=== PATIENT | female | born 1980 | race African-American/Black ===

== ENCOUNTER 2019-12-24 00:25 | Emergency (ER) | payer MEDICAID ==
[~2019-12-24] VITALS: Ht 170.2 cm; Wt 75.0 kg
[2019-12-24] MEDS ORDERED: SODIUM CHLORIDE 0.9% 1,000 ML IV ONE (00:57)
[2019-12-24] MEDS ORDERED: LORAZEPAM 2MG/ML CPJ IV ONE (01:00)
[2019-12-24] MEDS ORDERED: ONDANSETRON HCL 4MG/2ML INJ IV ONE (01:00)
[2019-12-24 01:12] LABS: EOSINOPHILS % 0.5 % (0.0-5.0); HEMATOCRIT. 36.5 % (36.0-48.0); HEMOGLOBIN. 12.3 g/dL (12.0-16.0); LYMPHOCYTES % 19.7 % (20.0-50.0); MEAN CORPUSCULAR HEMOGLOBIN 30.8 pg (28.0-32.0); MEAN PLATELET VOLUME 8.8 fl (7.4-10.4); MONOCYTES % 7.2 % (2.0-8.0); NEUTROPHILS % 71.6 % (40.0-76.0); PLATELET 382 x1000/uL (130-400); RED BLOOD CELL COUNT 4.01 mill/uL (4.2-5.4); RED CELL DISTRIBUTION WIDTH 16.1 % (11.6-14.6)
[2019-12-24 01:19] LABS: CHLORIDE 108 mEq/L (98-107)
[2019-12-24 01:24] LABS: ETHANOL BLOOD < 10 mg/dL
[2019-12-24 02:11] LABS: CLARITY URINE CLOUDY (CLEAR); COLOR URINE DARK YELLOW (YELLOW); KETONES URINE 1+ (NEGATIVE); LEUKOCYTE ESTERASE URINE 1+ (NEGATIVE); NITRITE URINE NEGATIVE (NEGATIVE); OCCULT BLOOD URINE NEGATIVE (NEGATIVE); PROTEIN URINE 1+ (NEGATIVE); SPECIFIC GRAVITY URINE 1.031 (1.005-1.030)
[2019-12-24 02:22] LABS: *BARBITURATES SCREEN URINE NEGATIVE (NEGATIVE); *BENZODIAZEPINES SCREEN URINE NEGATIVE (NEGATIVE); CANNABINOID URINE SCREEN NEGATIVE (NEGATIVE); METHADONE URINE SCREEN NEGATIVE (NEGATIVE); OPIATES URINE SCREEN NEGATIVE (NEGATIVE)
[2019-12-24 02:32] LABS: *AMPHETAMINES SCREEN URINE PRESUMTIVE POSITIVE (NEGATIVE); *COCAINE SCREEN URINE PRESUMTIVE POSITIVE (NEGATIVE); PHENCYCLIDINE URINE SCREEN PRESUMTIVE POSITIVE (NEGATIVE)
[2019-12-24 06:15] VITALS: BP 131/78
== END 2019-12-24 06:17 | disposition home or self-care (01) ==
LOC: EDBD 00:25 → ER 00:25
DX: S81.811A Laceration without foreign body, right lower leg, initial encounter (principal); G93.40 Encephalopathy, unspecified; R41.82 Altered mental status, unspecified; X58.XXXA Exposure to other specified factors, initial encounter; Y93.89 Activity, other specified; Y92.89 Other specified places as the place of occurrence of the external cause; Y99.8 Other external cause status
CPT/HCPCS: 36415; 70450; 71045; 74176; 80053; 80305; 80307; 80320; 80329; 81003; 81025; 85025; 93005; 96361; 96374; 96375; 99291; J2060; J2405; J7030; G0480

== ENCOUNTER 2019-12-30 21:37 | Emergency (ER) | payer MEDICAID ==
[~2019-12-30] VITALS: Ht 170.2 cm; Wt 59.0 kg
[2019-12-30] MEDS ORDERED: HALOPERIDOL LACTATE 5MG/ML VIAL IM ONE (22:00)
[2019-12-30] MEDS ORDERED: SODIUM CHLORIDE 0.9% 1,000 ML IV ONE (23:15)
[2019-12-30 23:53] LABS: CHLORIDE 112 mEq/L (98-107)
[2019-12-31 00:48] LABS: *BARBITURATES SCREEN URINE NEGATIVE (NEGATIVE)
[2019-12-31 00:49] LABS: *BENZODIAZEPINES SCREEN URINE NEGATIVE (NEGATIVE); CANNABINOID URINE SCREEN NEGATIVE (NEGATIVE); METHADONE URINE SCREEN NEGATIVE (NEGATIVE); OPIATES URINE SCREEN NEGATIVE (NEGATIVE); PHENCYCLIDINE URINE SCREEN NEGATIVE (NEGATIVE)
[2019-12-31 00:50] LABS: *AMPHETAMINES SCREEN URINE PRESUMTIVE POSITIVE (NEGATIVE); *COCAINE SCREEN URINE PRESUMTIVE POSITIVE (NEGATIVE)
[2019-12-31 05:00] VITALS: BP 141/88
[2019-12-31 14:45] LABS: CLARITY URINE TURBID (CLEAR); COLOR URINE YELLOW (YELLOW); KETONES URINE TRACE (NEGATIVE); LEUKOCYTE ESTERASE URINE NEGATIVE (NEGATIVE); NITRITE URINE NEGATIVE (NEGATIVE); OCCULT BLOOD URINE NEGATIVE (NEGATIVE); PH URINE 5.5 (4.5-8.0); PROTEIN URINE NEGATIVE (NEGATIVE); SPECIFIC GRAVITY URINE 1.031 (1.005-1.030)
== END 2019-12-31 05:01 | disposition home or self-care (01) ==
LOC: ER 21:37
DX: T43.625A Adverse effect of amphetamines, initial encounter (principal); Y92.89 Other specified places as the place of occurrence of the external cause; F14.10 Cocaine abuse, uncomplicated
CPT/HCPCS: 36415; 80048; 80305; 81003; 84484; 96372; 99285; J1630; J7030

== ENCOUNTER 2020-01-11 19:59 | Emergency (ER) | payer MEDICAID ==
[~2020-01-11] VITALS: Ht 165.1 cm; Wt 66.0 kg
[2020-01-11 22:25] LABS: BASOPHILS % 0.8 % (0.0-2.0); HEMATOCRIT. 35.5 % (36.0-48.0); HEMOGLOBIN. 11.9 g/dL (12.0-16.0); LYMPHOCYTES % 21.9 % (20.0-50.0); MEAN CORPUSCULAR HEMOGLOBIN 30.6 pg (28.0-32.0); MEAN CORPUSCULAR VOLUME 90.7 fL (81.0-99.0); MEAN PLATELET VOLUME 9.7 fl (7.4-10.4); MONOCYTES % 11.3 % (2.0-8.0); PLATELET 314 x1000/uL (130-400); RED BLOOD CELL COUNT 3.91 mill/uL (4.2-5.4); RED CELL DISTRIBUTION WIDTH 15.1 % (11.6-14.6)
[2020-01-11 22:52] LABS: CHLORIDE 107 mEq/L (98-107)
[2020-01-11 22:57] LABS: ETHANOL BLOOD < 10 mg/dL
[2020-01-12 08:05] VITALS: BP 112/80
== END 2020-01-12 08:52 | disposition home or self-care (01) ==
LOC: ER 19:59
DX: T43.621A Poisoning by amphetamines, accidental (unintentional), initial encounter (principal); F23 Brief psychotic disorder; Y92.89 Other specified places as the place of occurrence of the external cause
CPT/HCPCS: 36415; 80053; 80307; 80320; 80329; 85025; 99285; G0480

== ENCOUNTER 2020-02-05 19:13 | Emergency (ER) | payer MEDICAID ==
[~2020-02-05] VITALS: Ht 157.5 cm; Wt 75.0 kg
[2020-02-05 19:22] VITALS: BP 116/79
[2020-02-05] MEDS ORDERED: ACETAMINOPHEN 325MG TABLET PO STA (19:48)
[2020-02-05 20:18] LABS: CLARITY URINE CLEAR (CLEAR); COLOR URINE YELLOW (YELLOW); KETONES URINE TRACE (NEGATIVE); LEUKOCYTE ESTERASE URINE TRACE (NEGATIVE); NITRITE URINE NEGATIVE (NEGATIVE); OCCULT BLOOD URINE NEGATIVE (NEGATIVE); PH URINE 5.5 (4.5-8.0); PROTEIN URINE 1+ (NEGATIVE); SPECIFIC GRAVITY URINE 1.038 (1.005-1.030)
[2020-02-05 20:33] LABS: *BARBITURATES SCREEN URINE NEGATIVE (NEGATIVE); *BENZODIAZEPINES SCREEN URINE NEGATIVE (NEGATIVE); *COCAINE SCREEN URINE NEGATIVE (NEGATIVE); METHADONE URINE SCREEN NEGATIVE (NEGATIVE)
[2020-02-05 20:34] LABS: CANNABINOID URINE SCREEN NEGATIVE (NEGATIVE)
[2020-02-05 20:40] LABS: *AMPHETAMINES SCREEN URINE PRESUMTIVE POSITIVE (NEGATIVE); OPIATES URINE SCREEN PRESUMTIVE POSITIVE (NEGATIVE); PHENCYCLIDINE URINE SCREEN PRESUMTIVE POSITIVE (NEGATIVE)
[2020-02-05 20:49] LABS: BASOPHILS % 0.8 % (0.0-2.0); EOSINOPHILS % 1.6 % (0.0-5.0); HEMATOCRIT. 34.3 % (36.0-48.0); HEMOGLOBIN. 11.7 g/dL (12.0-16.0); LYMPHOCYTES % 29.5 % (20.0-50.0); MEAN CORPUSCULAR HEMOGLOBIN 30.9 pg (28.0-32.0); MEAN CORPUSCULAR VOLUME 90.6 fL (81.0-99.0); MEAN PLATELET VOLUME 8.3 fl (7.4-10.4); MONOCYTES % 8.3 % (2.0-8.0); NEUTROPHILS % 59.8 % (40.0-76.0); PLATELET 367 x1000/uL (130-400); RED BLOOD CELL COUNT 3.79 mill/uL (4.2-5.4)
[2020-02-05 20:55] LABS: CHLORIDE 110 mEq/L (98-107)
[2020-02-05 20:59] LABS: ETHANOL BLOOD 89 mg/dL
[2020-02-05] MEDS ORDERED: LORAZEPAM 0.5MG TABLET PO ONE (22:00)
[2020-02-06] MEDS ORDERED: NITROFURANTOIN 100MG M/M CAPSULE PO SCH (09:00)
== END 2020-02-05 22:38 | disposition home or self-care (01) ==
LOC: ER 19:13
DX: R52 Pain, unspecified (principal); T40.991A Poisoning by other psychodysleptics [hallucinogens], accidental (unintentional), initial encounter; R56.9 Unspecified convulsions; Y92.9 Unspecified place or not applicable
CPT/HCPCS: 36415; 80053; 80305; 80307; 80320; 80329; 81003; 85025; 93005; 99284; G0480

== ENCOUNTER 2020-09-27 12:12 | Emergency (ER) | payer SELFPAY ==
[~2020-09-27] VITALS: Ht 170.2 cm; Wt 86.0 kg
[2020-09-27 12:17] VITALS: BP 113/80
[2020-09-27] MEDS ORDERED: ACETAMINOPHEN 325MG TABLET PO ONE (13:00)
[2020-09-27] MEDS ORDERED: TOPUD PO (13:43)
[2020-09-27] MEDS ORDERED: KEPP250 MT (13:43)
== END 2020-09-27 14:13 | disposition home or self-care (01) ==
LOC: ER 12:13
DX: F41.9 Anxiety disorder, unspecified (principal); R51.9 Headache, unspecified; F17.290 Nicotine dependence, other tobacco product, uncomplicated; F15.10 Other stimulant abuse, uncomplicated
CPT/HCPCS: 99283; Z7610

== ENCOUNTER 2021-10-09 09:33 | Emergency (ER) | payer MEDICAID, OTHER ==
[~2021-10-09] VITALS: Ht 165.1 cm; Wt 70.0 kg
[~2021-10-09 09:33] MED LIST: KEPP250 MT; TOPUD PO
[2021-10-09] MEDS ORDERED: ACETAMINOPHEN 325MG TABLET PO ONE (10:15)
[2021-10-09 10:51] VITALS: BP 105/75
== END 2021-10-09 10:52 ==
LOC: ER 09:42
DX: R09.81 Nasal congestion (principal); R04.0 Epistaxis; F41.9 Anxiety disorder, unspecified; I10 Essential (primary) hypertension; M32.9 Systemic lupus erythematosus, unspecified; Z02.79 Encounter for issue of other medical certificate
CPT/HCPCS: 99283

== ENCOUNTER 2022-01-01 20:15 | Emergency (ER) | payer MEDICAID, OTHER ==
[~2022-01-01] VITALS: Ht 170.2 cm; Wt 82.0 kg
[2022-01-01 20:18] VITALS: BP 138/78
[2022-01-01] MEDS ORDERED: LEVETIRACETAM 1000MG PREMIX 100 ML IV ONE (21:30)
[2022-01-01] MEDS ORDERED: SODIUM CHLORIDE 0.9% 1,000 ML IV ONE (21:30)
[2022-01-01 21:51] LABS: BASOPHILS % 0.7 % (0.0-2.0); EOSINOPHILS % 1.8 % (0.0-5.0); HEMATOCRIT. 32.7 % (36.0-48.0); LYMPHOCYTES % 25.3 % (20.0-50.0); MEAN CORPUSCULAR VOLUME 89.1 fL (81.0-99.0); MEAN PLATELET VOLUME 8.6 fl (7.4-10.4); MONOCYTES % 7.7 % (2.0-8.0); NEUTROPHILS % 64.5 % (40.0-76.0); PLATELET 287 x1000/uL (130-400); RED BLOOD CELL COUNT 3.68 mill/uL (4.2-5.4); RED CELL DISTRIBUTION WIDTH 15.3 % (11.6-14.6)
[2022-01-01 22:05] LABS: CHLORIDE 111 mEq/L (98-107)
[2022-01-01 22:11] LABS: ETHANOL BLOOD 47 mg/dL
[2022-01-01 22:14] LABS: HCG SCREEN NEGATIVE
== END 2022-01-01 22:04 | disposition left against medical advice (07) ==
LOC: ER 20:15
DX: R45.1 Restlessness and agitation (principal); F41.9 Anxiety disorder, unspecified; I10 Essential (primary) hypertension; M32.9 Systemic lupus erythematosus, unspecified; R56.9 Unspecified convulsions
CPT/HCPCS: 36415; 80053; 80320; 82542; 84703; 85025; 99283; J7030; G0480